=== PATIENT | female | born 1965 ===

== ENCOUNTER 2017-10-20 07:23 | Day surgery (SDC) | payer OTHER ==
[~2017-10-20 07:23] MED LIST: ADIPEX-P37.5 M1 PO; CATAFLAN PO; MULTI VITAMIN1 EACH PO; TRICOR145 MG PO
== END 2017-10-20 12:20 | disposition home or self-care (01) ==
LOC: AMB-ENDOS 07:23
DX: D12.5 Benign neoplasm of sigmoid colon (principal); K64.1 Second degree hemorrhoids; Z12.11 Encounter for screening for malignant neoplasm of colon

== ENCOUNTER 2019-04-23 06:55 | Day surgery (SDC) | payer OTHER ==
[~2019-04-23 06:55] MED LIST changes: +SINGULAIR10 MG PO; +SYNTROID PO; +TRICOR PO; +TYLENOL PO; +ZESTRIL10 M1 PO; +ZINC LOZENGES1 EACH PO
== END 2019-04-23 17:25 | disposition home or self-care (01) ==
LOC: CIR.AMB 06:55
DX: C50.112 Malignant neoplasm of central portion of left female breast (principal)